=== PATIENT | female | born 1965 | race Caucasian/White ===

== ENCOUNTER 2019-04-17 16:19 | Emergency (ER) | payer BC ==
[2019-04-17 16:26] VITALS: BP 122/83
--- NOTE | 2019-04-17 16:46 | UC ---
Complaint Female HPI - HPI Summary HPI Summary: 53 yo woman with 1 week history of dysuria and frequency, without fever, nausea or vomiting. Past his of UTI's, with one episode of left hydronephrosis related to ureteral obstruction not related to stones. Past hysterectomy, has no vaginal discharge or symptoms. - History Of Current Complaint Chief Complaint: UCGU Stated Complaint: URINARY COMPLAINT Time Seen by Provider: 04/17/19 16:38 Hx Obtained From: Patient Onset/Duration: Gradual Onset, Lasting Days Timing: Intermittent Severity Initially: Mild Severity Currently: Moderate Pain Intensity: 6 Character: Burning, Cramping Aggravating Factor(s): Urination Alleviating Factor(s): Nothing Associated Signs And Symptoms: Negative: Fever, Back Pain, Vaginal Discharge - Risk Factors Ectopic Risk Factor: Negative Ovarian Torsion Risk Factor: Negative - Allergies/Home Medications Allergies/Adverse Reactions: Allergies Allergy/AdvReac Type Severity Reaction Status Date / Time No Known Allergies Allergy Verified 04/17/19 16:26 PMH/Surg Hx/FS Hx/Imm Hx Previously Healthy: Yes - Surgical History Surgical History: Yes Surgery Procedure, Year, and Place: hysterectomy, renal stent - Family History Known Family History: Positive: Hypertension - Social History Occupation: Employed Full-time Lives: With Family Alcohol Use: Occasionally Substance Use Type: None Smoking Status (MU): Former Smoker Review of Systems All Other Systems Reviewed And Are Negative: Yes Constitutional: Positive: Negative Skin: Positive: Negative Eyes: Positive: Negative ENT: Positive: Negative Respiratory: Positive: Negative Cardiovascular: Positive: Negative Gastrointestinal: Positive: Negative Genitourinary: Positive: Dysuria, Frequency, Urgency Motor: Positive: Negative Neurovascular: Positive: Negative Musculoskeletal: Positive: Negative Neurological: Positive: Negative Psychological: Positive: Negative Is Patient Immunocompromised?: No Physical Exam Triage Information Reviewed: Yes Appearance: Well-Appearing, No Pain Distress Vital Signs: Initial Vital Signs Temp 99 F 04/17/19 16:22 Pulse 60 04/17/19 16:22 Resp 14 04/17/19 16:22 BP 122/83 04/17/19 16:22 Pulse Ox 100 04/17/19 16:22 ENT: Positive: Pharynx normal Neck: Positive: Supple, Nontender, No Lymphadenopathy Respiratory: Positive: Lungs clear, Normal breath sounds Cardiovascular: Positive: RRR, No Murmur Abdomen Description: Positive: No Organomegaly, Soft, Other: - tenderness suprapubic area without guarding or rebound.. Negative: CVA Tenderness (R), CVA Tenderness (L) Musculoskeletal Exam: Normal Neurological: Positive: Alert, Muscle Tone Normal Psychological Exam: Normal Skin Exam: Normal Diagnostics - Laboratory Lab Results: UA with 3+ nitrates Complaint Female Dx - Course Course Of Treatment: cefdinir for treatment as she reports history of previous antibiotic failures with UTI's, which have tended to have significant resistance problems. - Differential Dx/Diagnosis Differential Diagnosis/HQI/PQRI: Urinary Tract Infection Provider Diagnosis: UTI (urinary tract infection) Discharge ED - Sign-Out/Discharge Documenting (check all that apply): Patient Departure All imaging exams completed and their final reports reviewed: No Studies - Discharge Plan Condition: Stable Disposition: HOME Prescriptions: Cefdinir [Cefdinir 300 MG CAP] 300 mg PO BID #14 cap Patient Education Materials: Urinary Tract Infection in Women (ED) Referrals: Pari Levy MD [Primary Care Provider] - Additional Instructions: Begin treatment with cefdinir (Omnicef) pending urinary culture results. You will be called if a change of antibiotics is needed. - Billing Disposition and Condition Condition: STABLE Disposition: Home
== END 2019-04-17 17:45 | disposition home or self-care (01) ==
LOC: UCEAST 16:19
DX: N39.0 Urinary tract infection, site not specified (principal); Z90.710 Acquired absence of both cervix and uterus; Z87.891 Personal history of nicotine dependence
CPT/HCPCS: 81003; 87086; 99212; G0463